=== PATIENT | female | born 1990 | race Asian ===

== ENCOUNTER → 2016-09-14 | Outpatient (CLI) | payer OTHER ==
[~2016-09-14] MED LIST: LEVO0.117 PO
== END ==
LOC: LAB 15:09
DX: L73.2 Hidradenitis suppurativa (principal)
CPT/HCPCS: 87070; 87077; 87186; 87205

== ENCOUNTER 2021-07-08 13:48 | Emergency (ER) | payer OTHER ==
[~2021-07-08] VITALS: Ht 162.6 cm; Wt 99.3 kg
[2021-07-08 13:57] VITALS: TEMP 99.4
[2021-07-08 15:11] LABS: PLATELET COUNT 184 K/uL (152-353)
[2021-07-08 15:19] LABS: POTASSIUM 3.6 mmol/L (3.6-5.2)
[2021-07-08 18:58] VITALS: BP 108/69
== END 2021-07-08 19:00 | disposition home or self-care (01) ==
LOC: ED 13:48
PROVIDERS: Family Medicine
DX: Z3A.14 14 weeks gestation of pregnancy (principal); R11.10 Vomiting, unspecified; U07.1 COVID-19
CPT/HCPCS: 80053; 81000; 82150; 83690; 85027; 87502; 87635; 96360; 96375; 99284; J2405; U0003